=== PATIENT | male | born 1975 | race Caucasian/White ===

== ENCOUNTER 2018-10-26 15:50 | Emergency (ER) | payer BC ==
--- NOTE | 2018-10-26 15:59 | EDPHY ---
H & P Stated Complaint: CP, elevated d-dimer Time Seen by Provider: 10/26/18 15:58 - Personal History Current Tetanus/Diphtheria Vaccine: No Current Tetanus Diphtheria and Acellular Pertussis (TDAP): No - Medical/Surgical History Hx Asthma: No Hx Chronic Respiratory Disease: No Hx Diabetes: No Hx Cardiac Disease: No Hx Renal Disease: No Hx Cirrhosis: No Hx Alcoholism: No Hx HIV/AIDS: No Hx Splenectomy or Spleen Trauma: No Other PMH: hyperlipidemia - Social History Smoking Status: Never smoked Constitutional: Initial Vital Signs Temperature (C) 36.8 C 10/26/18 15:54 Heart Rate 68 10/26/18 15:54 Respiratory Rate 16 10/26/18 15:54 Blood Pressure 160/101 H 10/26/18 15:54 O2 Sat (%) 95 10/26/18 15:54 O2 Delivery Mode Room Air Allergies/Adverse Reactions: hydrocortisone [From Hydrocortone] Allergy (Verified 10/26/18 15:53) Home Medications: Medication Instructions Recorded Aspirin 10/26/18 Lipitor 10/26/18 Nexium 10/26/18 Propranolol HCl 10/26/18 Medical Decision Making - Diagnostics Imaging Results: Imaging Impressions Chest/Thorax CTA 10/26/18 16:26 Impression: Suboptimal opacification of the main pulmonary artery. No central pulmonary embolus. Left upper lobe nodule measuring 2 mm, likely benign. If patient has strong risk factors for lung cancer, would consider 12 month follow-up chest CT. Small hiatal hernia. Findings and recommendations discussed with Casey Castellanos MD at 1732 hour, . Imaging: Discussed imaging studies w/ fisher scallop Radiologist, I viewed and interpreted images myself ED Course/Re-evaluation: CHIEF COMPLAINT: Chest pain HISTORY OF PRESENT ILLNESS: The patient is a 43 y/o male with a history of hyperlipidemia complaining of chest pain onset yesterday. He states that this pain is a minor achy pain in his mid chest around the side of a silver dollar that is deep. He saw his PCP yesterday and had an elevated D-dimer. He denies recent travel or increased sedentary lifestyle. He denies history of personal or familial blood clots. His father did have an NH when he was in his early to mid forties. No fever, headache, body aches, lightheadedness, heart palpitations, shortness of breath, cough, abdominal pain, urinary or bowel complaints, numbness, paresthesias. REVIEW OF SYSTEMS: A comprehensive 10 system review of systems is otherwise negative aside from elements mentioned in the history of present illness and medical decision making. PHYSICAL EXAM: HR, BP, O2 Sat, RR. Temp noted General Appearance: Alert, well hydrated, appropriate, and non-toxic appearing. Head: Atraumatic without scalp tenderness or obvious injury Eyes: Pupils equal, round, reactive to light and accommodation, EOMI, no trauma , no injection. Ears: Clear bilaterally, no perforation, normal landmarks Nose: Atraumatic, no rhinorrhea, clear. Throat: There is no erythema or exudates, no lesions, normal tonsils, mucus membranes moist. Neck: Supple, 2+ carotid upstroke, nontender, no lymphadenopathy. Respiratory: No retractions, no distress, no wheezes, and no accessory muscle use. Lungs are clear to auscultation bilaterally. Cardiovascular: Regular rate and rhythm, no murmurs, rubs, or gallops. Bilateral carotid, radial, dorsalis pedis, and posterior tibial pulses intact. Good capillary refill all extremities. Gastrointestinal: Abdomen is soft, nontender, non-distended, no masses, no rebound, no guarding, no peritoneal signs. Musculoskeletal: Normal active ROM of all extremities, atraumatic. Neurological: Alert, appropriate, and interactive. The patient has normal DTRs and non-focal cranial nerves, motor, sensory, and cerebellar exam. Skin: No rashes, good turgor, no nodules on palpation. Past medical history: Hyperlipidemia Past surgical history: Denies Family history: Father had an NH at around 45. Social history: Lives in [place], single, employed DIAGNOSTICS/PROCEDURES/CRITICAL CARE TIME: EKG: The 12 lead EKG was interpreted by myself as sinus rhythm with a rate of 68. S1, Q3, T3 consistent with a right-sided heart strain. See hard copy and/or "tracemaster" electronic copy for interpretation. Study: CT of the chest angio with contrast Indication: Chest pain elevated D-dimer right heart strain pattern on EKG Results: CT scan of the chest was obtained. The results of the study are no evidence of pulmonary embolus or any acute finding. The study was read by the radiologist, Dr. gallego. I viewed the images myself on the PACS system. DIFFERENTIAL DIAGNOSIS: The differential diagnosis for the patient's chest pain included but was not limited to myocardial ischemia, pulmonary embolus, chest wall pain, pleural inflammation, and pulmonary infectious causes. MEDICAL DECISION MAKING: The patient is a 43 y/o male with a history of hyperlipidemia presenting with chest pain onset yesterday. He states that this pain is a minor achy pain in his mid chest around the side of a silver dollar that is deep. His PCP ran labs which revealed an elevated D-dimer. He has a normal physical exam. Labs and EKG ordered. 1620: I interpreted patient's EKG as sinus rhythm with a rate of 68. S1, Q3, T3 consistent with a right-sided heart strain. Chest CTA ordered. 1730: This patient has a normal troponin, he has an deep Q-wave and inverted T- wave in lead 3 of his EKG and a mildly enlarged right heart on CT angiography but nothing worrisome. He does not have a pulmonary embolus. His troponin is normal. We will have him follow up with his primary care physician. His heart score is 2. He will follow up with Cardiology as an outpatient. Return precautions provided; patient is comfortable with this plan. - Data Points Laboratory Results: Laboratory Results 10/26/18 16:05 10/26/18 16:05 10/26/18 10/26/18 10/26/18 16:52 16:05 16:05 WBC 6.85 10^3/uL 10^3/uL (3.80-9.50) RBC 5.01 10^6/uL 10^6/uL (4.40-6.38) Hgb 14.4 g/dL g/dL (13.7-17.5) Hct 42.1 % % (40.0-51.0) MCV 84.0 fL fL (81.5-99.8) MCH 28.7 pg pg (27.9-34.1) MCHC 34.2 g/dL g/dL (32.4-36.7) RDW 13.1 % % (11.5-15.2) Plt Count 313 10^3/uL 10^3/uL (150-400) MPV 10.0 fL fL (8.7-11.7) Neut % (Auto) 53.1 % % (39.3-74.2) Lymph % (Auto) 33.6 % % (15.0-45.0) Scurry % (Auto) 10.1 % % (4.5-13.0) Eos % (Auto) 1.9 % % (0.6-7.6) Baso % (Auto) 1.0 % % (0.3-1.7) Nucleat RBC Rel Count 0.0 % % (0.0-0.2) Absolute Neuts (auto) 3.64 10^3/uL 10^3/uL (1.70-6.50) Absolute Lymphs (auto) 2.30 10^3/uL 10^3/uL (1.00-3.00) Absolute Monos (auto) 0.69 10^3/uL 10^3/uL (0.30-0.80) Absolute Eos (auto) 0.13 10^3/uL 10^3/uL (0.03-0.40) Absolute Basos (auto) 0.07 10^3/uL 10^3/uL (0.02-0.10) Absolute Nucleated RBC 0.00 10^3/uL 10^3/uL (0-0.01) Immature Gran % 0.3 % % (0.0-1.1) Immature Gran # 0.02 10^3/uL 10^3/uL (0.00-0.10) Sodium 138 mEq/L mEq/L (135-145) Potassium 3.7 mEq/L mEq/L (3.5-5.2) Chloride 102 mEq/L mEq/L (97-110) Carbon Dioxide 26 mEq/l mEq/l (22-31) Anion Gap 10 mEq/L mEq/L (6-14) BUN 17 mg/dL mg/dL (7-23) Creatinine 0.9 mg/dL mg/dL (0.7-1.3) Estimated GFR > 60 Glucose 92 mg/dL mg/dL (70-100) Calcium 9.3 mg/dL mg/dL (8.5-10.4) POC Troponin I 0.01 ng/mL ng/mL (0.00-0.08) Point of Care Test Results: Chemistry 10/26/18 16:52 POC Troponin I 0.01 ng/mL ng/mL (0.00-0.08) Departure - Departure Disposition: Home, Routine, Self-Care Clinical Impression: Chest pain Qualifiers: Chest pain type: pleurodynia Qualified Code(s): R07.81 - Pleurodynia Condition: Good Instructions: Chest Pain (ED) Additional Instructions: Follow up with Cardiology in the next 1-2 days return if her symptoms worsen. Referrals: ALEXIA MICHAEL [Other] - As per Instructions Manjula Box MD [Medical Doctor] - As per Instructions Report Scribed for: Casey Castellanos Report Scribed by: Justine Garcai Date of Report: 10/26/18 Time of Report: 16:07
[2018-10-26 16:33] LABS: PLATELET COUNT 313 10^3/uL (150-400)
[2018-10-26] MEDS ORDERED: IOPAMIDOL (ISOVUE 370) 100 ML BTL IV ONE (16:36)
[2018-10-26 18:00] VITALS: BP 124/90
--- NOTE | 2018-10-26 19:19 | CPEKG ---
Test Reason : OPEN Blood Pressure : / mmHG Vent. Rate : 068 BPM Atrial Rate : 068 BPM P-R Int : 151 ms QRS Dur : 102 ms QT Int : 422 ms P-R-T Axes : 029 -15 007 degrees QTc Int : 449 ms Sinus rhythm Borderline left axis deviation Confirmed by Casey Castellanos ([id number]) on 10/26/2018 7:18:44 PM Referred By: Casey Castellanos Confirmed By:Casey Castellanos
== END 2018-10-26 18:00 | disposition home or self-care (01) ==
DX: R07.81 Pleurodynia (principal); E78.5 Hyperlipidemia, unspecified
CPT/HCPCS: 84484-ER; Q9967